=== PATIENT | female | born 2000 | race Caucasian/White ===

== ENCOUNTER → 2023-11-02 | Outpatient (CLI) | payer MEDICAID ==
[2023-11-02 09:48] LABS: Basophils # (auto) 0 10 ^3/uL (0-0.2); Basophils % (auto) 0.6 % (0.0-2.0); Eosinophils # (auto) 0.1 10 ^3/uL (0-0.8); Eosinophils % (auto) 1.1 % (0.0-7.0); Hematocrit 29.6 % (36.0-46.0); Hemoglobin 9.2 g/dL (12.2-16.2); Lymphocytes # (auto) 0.7 10 ^3/uL (0.4-5.4); Lymphocytes % (auto) 9.1 % (10.0-50.0); Mean Corpuscular Hemoglobin 20.2 pg (28.0-32.0); Mean Corpuscular Hgb Conc. 31.1 g/dL (32.0-36.0); Mean Corpuscular Volume 64.8 fL (80.0-100.0); Monocytes # (auto) 0.7 10 ^3/uL (0-1.3); Monocytes % (auto) 8.9 % (0.0-12.0); Neutrophils # (auto) 6.3 10 ^3/uL (1.6-8.6); Neutrophils % (auto) 80.3 % (37.0-80.0); Nucleated Red Blood Cells % 0.1 %; Red Blood Cells 4.57 10^6/uL (4.0-5.20); Red Cell Distribution Width 18.9 % (11.8-14.3); White Blood Cell 7.9 10^3/uL (4.4-10.8)
[2023-11-03 08:07] LABS: RPR Non Reactive (Non Reactive)
== END | disposition home or self-care (01) ==
LOC: LAB 09:25
PROVIDERS: ATTEND Obstetrics & Gynecology
DX: Z34.80 Encounter for supervision of other normal pregnancy, unspecified trimester (principal); Z3A.00 Weeks of gestation of pregnancy not specified
CPT/HCPCS: 36415; 85025; 86592

== ENCOUNTER 2023-11-13 16:16 | Inpatient (IN) | payer MEDICAID ==
[~2023-11-13] VITALS: Ht 165.1 cm; Wt 84.8 kg
[2023-11-13] MEDS ORDERED: PROMETHAZINE HCL 25 MG/ML 1ML IV PRN (20:15)
[2023-11-13] MEDS ORDERED: BUTORPHANOL TARTRATE 2 MG/1 ML VIAL IV PRN ×2 (20:15)
[2023-11-13] MEDS ORDERED: LIDOCAINE 2%HCL (LOCAL ANESTH.) INJ 20ML MDV IJ PRN (20:15)
[2023-11-13] MEDS ORDERED: PROMETHAZINE HCL 25 MG/ML 1ML IM PRN (20:30)
[2023-11-13] MEDS ORDERED: diphenhdrAMINE HCL 50 MG/1 ML VL IV PRN (20:30)
[2023-11-13] MEDS ORDERED: fentaNYL CITRATE 100 MCG/2 ML VL IV PRN (20:30)
[2023-11-13] MEDS ORDERED: MINERAL OIL TOPICAL 10ml TOP PRN (20:30)
[2023-11-13] MEDS ORDERED: CARBOPROST TROMETHAMINE 250 MCG/1ML VIAL IM PRN (20:30)
[2023-11-13] MEDS ORDERED: METHYLERGONOVINE MALEATE 0.2 MG/ML AMP IM PRN (20:30)
[2023-11-13] MEDS ORDERED: TRANEXAMIC ACID 1,000 MG in SODIUM CHL 0.9% 100 ML IV PRN (20:30)
[2023-11-13 20:53] LABS: Basophils # (auto) 0 10 ^3/uL (0-0.2); Basophils % (auto) 0.2 % (0.0-2.0); Eosinophils # (auto) 0.1 10 ^3/uL (0-0.8); Eosinophils % (auto) 0.9 % (0.0-7.0); Hematocrit 29.8 % (36.0-46.0); Hemoglobin 9.1 g/dL (12.2-16.2); Lymphocytes # (auto) 1.5 10 ^3/uL (0.4-5.4); Lymphocytes % (auto) 11.1 % (10.0-50.0); Mean Corpuscular Hemoglobin 19.4 pg (28.0-32.0); Mean Corpuscular Hgb Conc. 30.5 g/dL (32.0-36.0); Mean Corpuscular Volume 63.7 fL (80.0-100.0); Monocytes # (auto) 1.1 10 ^3/uL (0-1.3); Monocytes % (auto) 8.2 % (0.0-12.0); Neutrophils # (auto) 10.7 10 ^3/uL (1.6-8.6); Neutrophils % (auto) 79.6 % (37.0-80.0); Nucleated Red Blood Cells % 0.1 %; Red Blood Cells 4.67 10^6/uL (4.0-5.20); Red Cell Distribution Width 19.7 % (11.8-14.3); White Blood Cell 13.4 10^3/uL (4.4-10.8)
[2023-11-13 21:09] LABS: Alkaline Phosphatase 195 U/L (46-116); Calcium 8.9 mg/dL (8.5-10.1); Carbon Dioxide 20 mmol/L (20-30); Chloride 107 mmol/L (98-107); Glucose 86 mg/dL (74-106)
[2023-11-13 21:10] LABS: Albumin 3.9 g/dL (3.2-4.8); Anion Gap 9 (5-15); Aspartate Aminotransferase 15 U/L (13-40); Bilirubin, Total 0.5 mg/dL (0.2-1.0); Blood Urea Nitrogen 6 mg/dL (9-23); Potassium 3.8 mmol/L (3.5-5.1); Sodium 136 mmol/L (136-145); Total Protein 6.5 g/dL (5.7-8.2)
[2023-11-13 21:11] LABS: INR 0.89 (0.9-1.15); Partial Thromboplastin Time 26.5 SEC (24.5-34.5); Prothrombin Time 9.4 sec (9.3-11.8)
[2023-11-13] MEDS: LACTATED RINGER'S 1,000 ML IV SCH (21:11)
[2023-11-13 21:17] LABS: Alanine Aminotransferase < 9 U/L (7-40)
[2023-11-13 21:29] LABS: Urine Amorphous Crystal FEW /hpf (None Seen); Urine Bacteria NONE SEEN /hpf (None Seen); Urine Blood Negative /uL (Negative); Urine Clarity HAZY (Clear); Urine Color Yellow (Yellow); Urine Mucus FEW (None Seen); Urine Protein, UAD TRACE (Negative); Urine Urobilinogen Normal (Negative); Urine WBC 16 /hpf (0 - 5); Urine pH 6.5 (5.0-8.0)
[2023-11-13 21:34] LABS: Amphetamine Screen, Urine Neg (NEGATIVE); Barbiturate Scree,Urine Neg (NEGATIVE); Benzodiazephine Screen, Urine Neg (NEGATIVE); Cannabinoid Screen, Urine Neg (NEGATIVE); Cocaine Screen, Urine Neg (NEGATIVE); Opiate Scree,Urine Neg (NEGATIVE); Phencyclidine Screen, Urine Neg (NEGATIVE)
[2023-11-13] MEDS ORDERED: NALOXONE HCL 0.4 MG/ML VIAL IV ONE (22:45)
[2023-11-13] MEDS: WITCH HAZEL-GLYCERIN PAD TOP PRN (22:57)
[2023-11-13] MEDS: PHISODERM TOP SOLN 240ML BTL TOP PRN (22:57)
[2023-11-13] MEDS: MINERAL OIL TOPICAL 10ml TOP ONE (22:58)
[2023-11-13] MEDS: DERMOPLAST 60ML BOTTLE TOP PRN (23:01)
[2023-11-13] MEDS: LACTATED RINGER'S 1,000 ML IV ONE (23:02)
[2023-11-13] MEDS: ROPIVACAINE HCL 100 ML ONE (23:48)
[2023-11-13] MEDS: fentaNYL CITRATE 100 MCG/2 ML VL IV ONE (23:49)
[2023-11-14] VITALS (14 sets, daily range): BP systolic 93–118; BP diastolic 48–64; PULSE 85–118; RESP 16–20; TEMP 98.5–101.1; O2SAT 96–98
[2023-11-14] MEDS ORDERED: PENICILLIN G POTASSIUM 2,500,000 UNITS in D5W 5% 50 ML IV SCH (01:15)
[2023-11-14] MEDS ORDERED: TERBUTALINE SULFATE 1 MG/ML 1ML VIAL SC PRN (02:45)
[2023-11-14] MEDS: PENICILLIN G POT 5MIL/D5 50ML 50 ML IV ONE (05:08)
[2023-11-14] MEDS: LACT. RINGERS/OXYTOCIN 20UNITS 1,000 ML IV SCH (05:16)
[2023-11-14] MEDS: ROPIVACAINE HCL 100 ML ONE (06:28)
[2023-11-14] MEDS: PENICILLIN G POTASSIUM 2,500,000 UNITS in D5W 5% 50 ML IV SCH (08:57)
[2023-11-14] MEDS: ROPIVACAINE HCL 200 ML ONE (13:39)
[2023-11-14] MEDS: ePHEDrine SULFATE 50 MG/ML AMP IV ONE (15:50)
[2023-11-14] MEDS: DIPHENOXYLATE W/ATROPINE 2.5 MG TAB ONE (15:50)
[2023-11-14] MEDS: METHYLERGONOVINE MALEATE 0.2 MG/ML AMP IM ONE (15:58)
[2023-11-14] MEDS: ONDANSETRON HCL 4 MG/2 ML VIAL ONE (16:01)
[2023-11-14] MEDS: LIDOCAINE HCL 2 %PF INJ 10ML AMP IJ ONE (16:20)
[2023-11-14 16:27] LABS: Basophils % (auto) 0.3 % (0.0-2.0); Eosinophils # (auto) 0 10 ^3/uL (0-0.8); Eosinophils % (auto) 0.1 % (0.0-7.0); Hemoglobin 8.2 g/dL (12.2-16.2); White Blood Cell 17.3 10^3/uL (4.4-10.8)
[2023-11-14 16:29] LABS: Basophils # (auto) 0.1 10 ^3/uL (0-0.2); Lymphocytes # (auto) 1.3 10 ^3/uL (0.4-5.4); Lymphocytes % (auto) 7.4 % (10.0-50.0); Mean Corpuscular Hemoglobin 19.8 pg (28.0-32.0); Mean Corpuscular Hgb Conc. 29.1 g/dL (32.0-36.0); Mean Corpuscular Volume 67.8 fL (80.0-100.0); Monocytes # (auto) 1.1 10 ^3/uL (0-1.3); Monocytes % (auto) 6.5 % (0.0-12.0); Neutrophils # (auto) 14.8 10 ^3/uL (1.6-8.6); Neutrophils % (auto) 85.7 % (37.0-80.0); Red Blood Cells 4.12 10^6/uL (4.0-5.20)
[2023-11-14 16:31] LABS: Red Cell Distribution Width 20.1 % (11.8-14.3)
[2023-11-14] MEDS: ceFAZolin 2 GM/D5W100ml 100 ML IV SCH (17:00)
[2023-11-14] MEDS ORDERED: ACETAMINOPHEN 325 MG TAB PO PRN (17:00)
[2023-11-14 17:06] LABS: INR 0.92 (0.9-1.15); Partial Thromboplastin Time 26.7 SEC (24.5-34.5); Prothrombin Time 9.7 sec (9.3-11.8)
[2023-11-14] MEDS ORDERED: ACETAMINOPHEN 500 MG TAB PO PRN ×2 (18:30→20:00)
[2023-11-14] MEDS ORDERED: GENTAMICIN PER PHARMACY 0 ML IV SCH (18:45)
[2023-11-14 19:06] LABS: Anisocytosis Slight; Hypochromia Marked; Platelet Estimate Adequate
[2023-11-14] MEDS: DIPHENOXYLATE W/ATROPINE 2.5 MG TAB PO SCH (19:15)
[2023-11-14] MEDS: CARBOPROST TROMETHAMINE 250 MCG/1ML VIAL IM ONE (19:19)
[2023-11-14] MEDS: ONDANSETRON HCL 4 MG/2 ML VIAL IV PRN (19:21)
[2023-11-14] MEDS: METHYLERGONOVINE MALEATE 0.2 MG/ML AMP IM PRN (19:22)
[2023-11-14] MEDS: miSOPROStol 100 mcg TAB PR PRN (19:23)
[2023-11-14] MEDS ORDERED: DIPHENOXYLATE W/ATROPINE 2.5 MG TAB PO PRN (19:30)
[2023-11-14 19:42] LABS: Alkaline Phosphatase 159 U/L (46-116); Anion Gap 8 (5-15); Aspartate Aminotransferase 23 U/L (13-40); Bilirubin, Total 0.8 mg/dL (0.2-1.0); Calcium 8.2 mg/dL (8.5-10.1); Carbon Dioxide 20 mmol/L (20-30); Chloride 109 mmol/L (98-107); Glucose 89 mg/dL (74-106); Potassium 3.7 mmol/L (3.5-5.1); Sodium 137 mmol/L (136-145); Total Protein 5.2 g/dL (5.7-8.2)
[2023-11-14] MEDS: ACETAMINOPHEN 325 MG TAB PO PRN (19:47)
[2023-11-14] MEDS: LACT. RINGERS/OXYTOCIN 20UNITS 500 ML IV ONE ×2 (19:50→19:52)
[2023-11-14 19:57] LABS: Alanine Aminotransferase < 9 U/L (7-40); BUN/Creatinine Ratio 8.6 (10.0-20.0); Blood Urea Nitrogen < 5 mg/dL (9-23)
[2023-11-14] MEDS: CLINDAMYCIN 900MG IV 50 ML IV SCH (20:06)
[2023-11-14] MEDS: D5W 5% IV SCH (21:19)
[2023-11-14] MEDS: GENTAMICIN SULFATE IV SCH (21:19)
[2023-11-14] MEDS: DOCUSATE SOD 100 MG CAP PO SCH (22:00)
[2023-11-14] MEDS: IBUPROFEN 600 MG TAB PO PRN (23:15)
[2023-11-15] VITALS (9 sets, daily range): BP systolic 101–113; BP diastolic 53–59; PULSE 72–96; RESP 15–18; TEMP 97.9–98.9; O2SAT 96–98
[2023-11-15] MEDS ORDERED: DOCU-265 PO (01:40)
[2023-11-15] MEDS ORDERED: IBU600T PO (01:40)
[2023-11-15] MEDS ORDERED: PRENCAP75 PO (01:40)
[2023-11-15] MEDS ORDERED: FERR30CA PO (01:40)
[2023-11-15 03:06] LABS: Basophils # (auto) 0.1 10 ^3/uL (0-0.2); Basophils % (auto) 0.5 % (0.0-2.0); Eosinophils # (auto) 0 10 ^3/uL (0-0.8); Hematocrit 24.7 % (36.0-46.0); Hemoglobin 7.9 g/dL (12.2-16.2); Lymphocytes # (auto) 1.5 10 ^3/uL (0.4-5.4); Lymphocytes % (auto) 8.1 % (10.0-50.0); Mean Corpuscular Hemoglobin 23.2 pg (28.0-32.0); Mean Corpuscular Hgb Conc. 31.8 g/dL (32.0-36.0); Mean Corpuscular Volume 73.1 fL (80.0-100.0); Monocytes # (auto) 1.6 10 ^3/uL (0-1.3); Monocytes % (auto) 8.7 % (0.0-12.0); Neutrophils # (auto) 15.1 10 ^3/uL (1.6-8.6); Neutrophils % (auto) 82.7 % (37.0-80.0); Red Blood Cells 3.39 10^6/uL (4.0-5.20); White Blood Cell 18.3 10^3/uL (4.4-10.8)
[2023-11-15 03:07] LABS: Red Cell Distribution Width 28.9 % (11.8-14.3)
[2023-11-15 07:07] LABS: RPR Non Reactive (Non Reactive)
[2023-11-15] MEDS ORDERED: ePHEDrine SULFATE 50 MG/ML AMP IV ONE (09:15)
[2023-11-15] MEDS ORDERED: NALOXONE HCL 0.4 MG/ML VIAL IV ONE (09:15)
[2023-11-16 03:00] VITALS: BP 108/55; PULSE 77; RESP 18; TEMP 98.5; O2SAT 99
[2023-11-16 06:30] LABS: Eosinophils # (auto) 0.2 10 ^3/uL (0-0.8); Eosinophils % (auto) 1.7 % (0.0-7.0); Nucleated Red Blood Cells % 0.1 %
[2023-11-16 06:34] LABS: Basophils # (auto) 0 10 ^3/uL (0-0.2); Basophils % (auto) 0.3 % (0.0-2.0); Hematocrit 23.2 % (36.0-46.0); Hemoglobin 7.4 g/dL (12.2-16.2); Lymphocytes % (auto) 17.8 % (10.0-50.0); Mean Corpuscular Hemoglobin 23.2 pg (28.0-32.0); Mean Corpuscular Hgb Conc. 31.8 g/dL (32.0-36.0); Mean Corpuscular Volume 72.8 fL (80.0-100.0); Monocytes % (auto) 8.5 % (0.0-12.0); Neutrophils # (auto) 8.2 10 ^3/uL (1.6-8.6); Neutrophils % (auto) 71.7 % (37.0-80.0); Red Blood Cells 3.19 10^6/uL (4.0-5.20); White Blood Cell 11.4 10^3/uL (4.4-10.8)
[2023-11-16 06:50] LABS: Red Cell Distribution Width 29.1 % (11.8-14.3)
[2023-11-16 07:00] VITALS: BP 107/59; PULSE 72; RESP 16; TEMP 97.9; O2SAT 98
[2023-11-16 07:46] LABS: Anisocytosis Marked; Hypochromia Moderate; Platelet Estimate Adequate
[2023-11-16 07:47] LABS: Stomatocytes Few
[2023-11-16 20:06] LABS: Treponema pallidum Ab (FTA-Ab) Non Reactive (Non Reactive)
== END 2023-11-16 09:30 | disposition home or self-care (01) | DRG 560 ==
LOC: UNDOADMOB 16:16 → LDRP 16:16 → OBSVTOIN 19:46 → INTOOBSV 19:46 → LDRP 19:47 → OBSVTOIN 20:17 → LDRP 20:17
PROVIDERS: ADMIT Obstetrics & Gynecology; ATTEND Obstetrics & Gynecology
PROC: 10E0XZZ Delivery of Products of Conception, External Approach (ICD-10-PCS; principal; 2023-11-14)
PROC: 0KQM0ZZ Repair Perineum Muscle, Open Approach (ICD-10-PCS; 2023-11-14)
PROC: 3E0R3BZ Introduction of Anesthetic Agent into Spinal Canal, Percutaneous Approach (ICD-10-PCS; 2023-11-14)
PROC: 00HU33Z Insertion of Infusion Device into Spinal Canal, Percutaneous Approach (ICD-10-PCS; 2023-11-14)
PROC: 0W8NXZZ Division of Female Perineum, External Approach (ICD-10-PCS; 2023-11-14)
PROC: 30233K1 Transfusion of Nonautologous Frozen Plasma into Peripheral Vein, Percutaneous Approach (ICD-10-PCS; 2023-11-14)
PROC: 30233N1 Transfusion of Nonautologous Red Blood Cells into Peripheral Vein, Percutaneous Approach (ICD-10-PCS; 2023-11-14)
DX: O99.02 Anemia complicating childbirth (principal); Z37.0 Single live birth; D62 Acute posthemorrhagic anemia; Z3A.39 39 weeks gestation of pregnancy; O86.12 Endometritis following delivery; O72.1 Other immediate postpartum hemorrhage; O99.824 Streptococcus B carrier state complicating childbirth; O70.1 Second degree perineal laceration during delivery; O69.81X0 Labor and delivery complicated by cord around neck, without compression, not applicable or unspecified
CPT/HCPCS: 36415; 36430; 59025; 59409; 62282; 71045; 76815; 76856; 80053; 80307; 81001; 81002; 83605; 85025; 85384; 85610; 85730; 86592; 86850; 86900; 86901; 86920; 94760; 94762; 96360; 96361; 96365; 96366; 96372; G0378; J2405; J2540; J2590; J3490; J7060